=== PATIENT | female | born 2005 | race Caucasian/White ===

== ENCOUNTER 2024-04-04 11:48 | Emergency (ER) | payer SELFPAY ==
[~2024-04-04] VITALS: Ht 162.6 cm; Wt 68.0 kg
[2024-04-04 11:51] VITALS: BP 118/62; PULSE 84; RESP 16; TEMP 98.1; O2SAT 100
[2024-04-04] MEDS ORDERED: LIDO15SO10 PO (12:27)
[2024-04-04] MEDS ORDERED: IBUP-2213 PO (12:27)
[2024-04-04 12:39] VITALS: BP 121/62; PULSE 82; RESP 16; TEMP 98.1; O2SAT 99
[2024-04-04 14:01] LABS: FLU A ANTIGEN negative (NEGATIVE); FLU B ANTIGEN negative (NEGATIVE)
[2024-04-04] MEDS ORDERED: AMOX500C25 PO (14:19)
== END 2024-04-04 12:39 | disposition home or self-care (01) ==
LOC: MED 11:48
DX: J02.9 Acute pharyngitis, unspecified (principal); Z20.822 Contact with and (suspected) exposure to COVID-19; J45.909 Unspecified asthma, uncomplicated; Z79.899 Other long term (current) drug therapy
CPT/HCPCS: 87081; 99283